=== PATIENT | male | born 1980 | race Caucasian/White ===

== ENCOUNTER 2025-03-29 21:26 | Emergency (ER) | payer OTHER, SELFPAY ==
--- OUTSIDE RECORDS SUMMARY | 2025-03-24 10:30 | XMS_ITS | Encounter Summary ---
Author Organization [facility] Address [address] [place] [address] Care Team Providers Care Service Administrator Name Role Phone Lashawn Robbins MD Primary Care Provider [phone] Reason for Visit * ReasonCommentsURISx of sore throat, sinus pressure, chest pressure, and cough that started Friday. Has been taking cough drops, and mucinex. Encounter Details DateTypeDepartmentCare Team (Latest Contact Info)Vwrlpyiquoo48/06/2025 10:30 AM ESTOffice Visit [facility] [address] [place] [address] Mari Johnson NP [address] [place], [place] [id number] Acute non-recurrent maxillary sinusitis (Primary Dx); Sinus pressure; Sore throat; Acute cough Social History Tobacco UseTypesPacks/DayYears UsedDateSmoking Tobacco: NeverSmokeless Tobacco: Never Tobacco Cessation:Counseling Given: Not Answered Alcohol UseStandard Drinks/WeekCommentsNot Currently1 (1 standard drink = 0.6 oz pure alcohol)caffeine: 1-2 cups per dayHumiliation, Afraid, Rape, and Kick questionnaireAnswerDate RecordedWithin the last year, have you been afraid of your partner or ex-partner?No10/30/2022Within the last year, have you been humiliated or emotionally abused in other ways by your partner or ex-partner?No 10/30/2022Within the last year, have you been kicked, hit, slapped, or otherwise physically hurt by your partner or ex-partner?No10/30/2022Within the last year, have you been raped or forced to have any kind of sexual activity by your part ner or ex-partner?No10/30/2022Social Connection and Isolation PanelAnswerDate RecordedIn a typical week, how many times do you talk on the phone with family, friends, or neighbors?Twice a week10/30/2022How often do you get together with friends or relatives?Once a week10/30/2022How often do you attend congregational or sabianist services?1 to 4 times per year10/30/2022o you belong to any clubs or organizations such as congregational groups, unions, [employer] or athletic groups, or school groups?No10/30/2022ttends Club or Organization MeetingsNot on file 10/30/2022re you , , , , never , or living with a partner?Wqoquot7010/30/2022UDIT-CAnswerDate RecordedQ1: How often do you have a drink containing alcohol?2-4 times a month10/30/2022Q2: How many drinks containing alcohol do you have on a typical day when you are drinking?1 or Q3: How often do you have six or more drinks on one occasion?Never 10/30/2022Overall Financial Resource Strain (CARDIA)AnswerDate RecordedHow hard is it for you to pay for the very basics like food, housing, medical care, and heating?Not hard at all10/30/2022HQ-2AnswerDate RecordedPatient Health Questionnaire-2 Nqpmd756Finh[facility]man [facility] [place] of Occupational Health - Occupational Stress QuestionnaireAnswerDate RecordedDo you feel stress - tense, restless, nervous, or anxious, or unable to sleep at night because yourmind is troubled all the time - these days?Not at all10/30/2022Exercise Vital SignAnswer Date RecordedOn average, how many days per week do you engage in moderate to strenuous exercise (like a brisk walk)?6 days10/30/2022On average, how many minutes do you engage in exercise at this level?120 min10/30/2022Hunger Vital SignAnswerDate RecordedWithin the past 12 months, you worried that your food would run out before you got the money to buymore.Never true10/30/2022Within the past 12 months, the food you bought just didn't last and you didn't have money to get more.Never true10/30/2022RAPARE - TransportationAnswerDate RecordedIn the past 12 months, has lack of transportation kept you from medical appointments or from getting medications?No10/30/2022In the past 12 months, has lack of transportation kept you from meetings, work, or from getting things needed for daily living?No10/30/2022Housing Stability Vital SignAnswerDate RecordedIn the last 12 months, was there a time when you were not able to pay the mortgage or rent on time?No10/30/2022Number of Places Lived in the Last Year Not on file10/30/2022In the last 12 months, was there a time when you did not have a steady place to sleep or slept in [facility] (including now)?No10/30/2022 Sex and Gender InformationValueDate RecordedSex Assigned at MnohzMjoj62/14/2023 7:08 AM EDTLegal PwsUfhm1107/31/2022 7:18 PM EDTGender RazppergZvfp53/14/2023 7:08 AM EDTSexual GwdgophwynqTtjceisn75/14/2023 7:08 AM EDTdocumented as of this encounter Last Filed Vital Signs Vital SignReadingTime TakenCommentsBlood Cocilopo355/7611 10:31 AM EST Efuwi6213 10:31 AM YOGNcemgghtfqs82.3 ??C (97.4 ??F)03/24/2025 10:31 AM ESTRespiratory Rate--Oxygen Axlghvlahz48%03/24/2025 10:31 AM ESTInhaled Oxygen Concentration--Exhxjy120 kg (227 lb 6.4 oz)03/24/2025 10:31 AM ESTHeight--Body Mass Index36.709 2:57 PM EDTdocumented in this encounter Progress Notes * Mari Johnson NP - 03/24/2025 10:30 AM EST Images from the original note were not included. Subjective ?Quick Links Last Note in Specialty Snapshot Edit RFV/CC Edit Screenings Current Meds Patient ID: Ruy Lemus is a 45 y.o. male who presents for URI (Sx of sore throat, sinus pressure, chest pressure, and cough that started Friday. Has been taking cough drops, and mucinex. ). HPI History of Present Illness The patient presents for evaluation of a sore throat. He has been experiencing symptoms since Friday, initially presenting with a severe sore throat. Subsequently, he developed an upset stomach, which he attributes to excessive consumption of cough drops. His symptoms then progressed to include sinus pressure and drainage. As of yesterday, he began toexperience a cough, accompanied by a sensation of bruising in his lungs, although without any associated wetness. He reports feeling tight and congested but has not experienced any fevers or body aches. Additionally, he notes tenderness in his sinuses and describes a painful sensation in his ears. He has been managing her symptoms with Mucinex D and increased water intake. ALLERGIES He is allergic to ASPIRIN. MEDICATIONS Mucinex D ?Quick Review Review Full History Edit History Meds - Current Medications[1] --- PMH - Allergic Injury Shingles Objective ?Quick Links Add Vitals Timeline (Adult) Labs Imaging Results Review Trend Vitals ?? Avoid pulling in long tables of results. Comment on relevant results to support your medical decision making. BP 122/76 Pulse 70 Temp 97.4 ??F Wt 227 lb 6.4 oz SpO2 98% BMI 36.70 kg/m?? Physical Exam Vitals reviewed. HENT: Head: Normocephalic and atraumatic. Right Ear: Tympanic membrane normal. Left Ear: Tympanic membrane normal. Nose: Nasal tenderness, mucosal edema, congestion and rhinorrhea present. Right Sinus: Maxillary sinus tenderness present. Left Sinus: Maxillary sinus tenderness present. Mouth/Throat: Mouth: Mucous membranes are moist. Pharynx: Posterior oropharyngeal erythema and postnasal drip present. Eyes: Pupils: Pupils are equal, round, and reactive to light. Cardiovascular: Rate and Rhythm: Normal rate and regular rhythm. Pulses: Normal pulses. Heart sounds: Normal heart sounds. Pulmonary: Effort: Pulmonary effort is normal. Breath sounds: Normal breath sounds. Musculoskeletal: Cervical back: Neck supple. Skin: General: Skin is warm and dry. Capillary Refill: Capillary refill takes less than 2 seconds. Findings: No rash. Neurological: General: No focal deficit present. Mental Status: He is alert and oriented to person, place, and time. Physical Exam Oral exam was performed. There is significant drainage in the throat. Lungs were auscultated. ?Quick Links Full Problem List Headache Assessment & Plan Sinus pressure Orders: STATUS COVID-19/FLU Sore throat Orders: STATUS COVID-19/FLU Acute cough Orders: STATUS COVID-19/FLU Acute non-recurrent maxillary sinusitis Assessment & Plan 1. Acute sinus infection. Early symptoms in the illness course suggest a viral etiology, but there is concern for acute sinusitis due to pain and tenderness to maxillary sinuses, headache, and post-nasal drainage. He is advised to rest at home for the remainder of the day. A work note will be provided for today. A 7-day course of Augmentin is prescribed to treat the infection he is advised to take it with food to minimizepotential gastrointestinal upset. Prednisone is also prescribed to reduce inflammation and improve sinus symptoms and chest tightness. Riwl-bjh-vfchrih Sudafed is recommended for congestion relief. Flonase is suggested to help dry up the sinuses. If he does not feel better by Friday, he should inform the office. [1] cyclobenzaprine (Flexeril) 10 MG tablet Glucosamine-Chondroitin (GLUCOSAMINE CHONDR COMPLEX PO) ibuprofen 800 MG tablet omega-3 1000 MG capsule capsule documented in this encounter Plan of Treatment DateTypeDepartmentCare Team (Latest Contact Info)Hmgralsttxs97/11/2026 3:30 PM EDTOffice Visit [facility] [address] [place] [address] Merle Atkinson NP [address] [place], [place] [id number] documented as of this encounter Procedures Procedure NamePriorityDate/TimeAssociated DiagnosisCommentsSTATUS COVID-19/FLU Zjxvijt9903/24/2025 10:40 AM EST Sinus pressure Sore throat Acute cough documented in this encounter Results * STATUS COVID-19/FLU (03/24/2025 10:40 AM EST)ComponentValueRef RangeTest MethodAnalysis TimePerformed AtPathologist SignatureFLU AnegativeFLU Bnegative SARS COV 2 RNAnegativeSpecimen (Source)Anatomical Location / Laterality Collection Method / VolumeCollection TimeReceived HwzdXbbaz06/06/2025 10:40 AM EST Narrative Authorizing ProviderResult TypeResult StatusWillapa Harbor Hospital Swined[facility] NPPOINT OF CARE TEST ENTER/EDIT ORDERABLESFinal Result documented in this encounter Visit Diagnoses Diagnosis Acute non-recurrent maxillary sinusitis- Primary Sinus pressure Other diseases of nasal cavity and sinuses Sore throat Acute pharyngitis Acute cough documented in this encounter Care Teams Team MemberRelationshipSpecialtyStart DateEnd Date Lashawn Robbins MD [address] [place] [address] PCP - GeneralFamily Medicine10/28/22documented as of this encounter
[2025-03-29 21:31] VITALS: BP 138/73; PULSE 77; TEMP 36.4; O2SAT 97; BMI 34.7
--- NOTE | 2025-03-29 21:58 | ED.EAR1 ---
HPI - Ear Problem General Chief complaint: Ear Stated complaint: CAN'T HEAR OUT OF LEFT EAR Time Seen by Provider: 03/29/25 21:32 Source: patient and family Mode of arrival: walk-in Limitations: no limitations History of Present Illness HPI Narrative: presents complaining of decreased hearing left ear. States he was pushing on wax at the entry of the ear canal and he feels it pushed the wax inside down into the canal. This happened about an hour ago. Now he can't hear out of the ear. No dizziness or headache Related Data Allergies Allergy/AdvReac Type Severity Reaction Status Date / Time aspirin Allergy Severe tachycardia Verified 03/29/25 21:31 Review of Systems ROS Status of ROS 10 or more systems reviewed and unremarkable except as noted in history and below PFSH PFSH Social History Little interest or pleasure in doing things: not at all Feeling down, depressed, or hopeless: not at all Exam Constitutional Vital Signs, click to edit/add: Last Vital Signs Temp 97.6 F 03/29/25 21:31 Pulse 77 03/29/25 21:31 Resp 15 03/29/25 21:41 BP 138/73 03/29/25 21:31 Pulse Ox 97 03/29/25 21:31 O2 Del Method Room Air 03/29/25 21:31 Common normals: no apparent distress, average body habitus, oriented x3, no limitations, healthy appearing, alert and well nourished [facility] Common normals: normocephalic and head/scalp atraumatic Other: impacted wax bilat ears. Kalli to hear out of the right but left ear sounds are muffled Eye Common normals: EOMs intact bilaterally and conjunctivae normal Respiratory Common normals: normal respiratory effort, no retractions, no use of accessory muscles and clear to auscultation bilaterally Cardio Common normals: regular rate, regular rhythm, S1 normal heart sound and S2 normal heart sound Extremity Common normals: normal to inspection and full ROM Neuro Common normals: oriented x3, CN's II-XII intact bilaterally, moves all extremities and no focal motor deficits Psych Appearance: grossly normal Course Vital Signs Vital signs: Vital Signs Temperature 97.6 F 03/29/25 21:31 Pulse Rate 77 03/29/25 21:31 Respiratory Rate 18 03/29/25 21:31 Blood Pressure 138/73 03/29/25 21:31 Pulse Oximetry 97 03/29/25 21:31 Oxygen Delivery Method Room Air 03/29/25 21:31 Temperature 97.6 F 03/29/25 21:31 Pulse Rate 77 03/29/25 21:31 Respiratory Rate 15 03/29/25 21:41 Blood Pressure 138/73 03/29/25 21:31 Pulse Oximetry 97 03/29/25 21:31 Oxygen Delivery Method Room Air 03/29/25 21:31 Medical Decision Making MDM Narrative Medical decision making narrative: presents with left ear wax impaction. Nursing did instill Debrox in the canal and the ear was irrigated several times and became sore. some wax removed but the majority remained. Patient discharged home with Debrox to use to soften the wax more. Advised to either see his doctor for recheck or he can return here Discharge Plan Discharge Chief Complaint: Ear Clinical Impression: Impacted cerumen, left ear Patient Disposition: Home, Self-Care Print Language: German Instructions: Carbamide Peroxide (Into the ear) Additional Instructions: instill drops 4 times a day. follow up with your doctor later this week for recheck Referrals: Physician,Non-Staff, MD [Primary Care Provider] - 1 week
[2025-03-29] MEDS: CARBAMIDE PEROXIDE 6.5% EAR DROPS 300 DROP/15 ML BOTTLE 10 DROP OT (22:15)
--- OUTSIDE RECORDS SUMMARY | 2025-03-29 22:25 | XMS_ITS | Encounter Summary ---
Author Organization [facility] Address [address] [place] [address] Care Team Providers Care Bilingual Account Manager Name Role Phone Lashawn Robbins MD Primary Care Provider [phone] Encounter Details DateTypeDepartmentCare Team (Latest Contact Info)Wqbutioxwii07/06/2025Travel Social History Tobacco UseTypesPacks/DayYears UsedDateSmoking Tobacco: NeverSmokeless Tobacco: NeverAlcohol UseStandard Drinks/WeekCommentsNot Currently1 (1 standard drink = [...] relatives?Once a week10/30/2022How often do you attend bahai or buddhist services?1 to 4 times per year10/30/2022o you belong to any clubs or organizations such as bahai groups, unions, fraternal or athletic groups, or school groups?No10/30/2022ttends Club or Organization MeetingsNot on file 10/30/2022re you , , , , never , or living with a partner?Ebhrlmz2610/30/2022UDIT-CAnswerDate RecordedQ1: How often do you have a [...] heating?Not hard at all10/30/2022HQ-2AnswerDate RecordedPatient Health Questionnaire-2 Ttldg347Finun[facility] of [facility] [place] of Occupational Health - Occupational Stress QuestionnaireAnswerDate [...] steady place to sleep or slept in andrewselter (including now)?No10/30/2022 Sex and Gender InformationValueDate RecordedSex Assigned at VqsjnQgkg33/14/2023 7:08 AM EDTLegal KymTiei8907/31/2022 7:18 PM EDTGender OlpzbmthFvwn93/14/2023 7:08 AM EDTSexual GnyocyzczbaGbsnazet84/14/2023 7:08 AM EDTdocumented as of this encounter Plan of Treatment DateTypeDepartmentCare Team (Latest Contact Info)Gxnpnqpixac78/11/2026 3:30 PM EDTOffice Visit [facility] [address] [place] [address] Merle Atkinson NP [address] [place] [address] documented as of this encounter Visit Diagnoses Not on filedocumented in this encounter Care Teams Team MemberRelationshipSpecialtyStart DateEnd Date Lashawn Robbins MD [address] [place], [place] [phone] PCP - GeneralFamily Medicine10/28/22documented as of this encounter
--- OUTSIDE RECORDS SUMMARY | 2025-03-29 22:25 | XMS_ITS | Clinical Summary ---
Author Organization [facility] Address [address] [place] [address] Care Team Providers Care Builder Operator Name Role Phone Lashawn Robbins MD Primary Care Provider [phone] Allergies Active AllergyReactionsCriticalityNoted DateCommentsAspirinGI intolerance, SwkyvdnHgvigw70/23/2018 Increased heart rate Medications MedicationSigDispense QuantityRefillsLast FilledStart DateEnd DateStatus ibuprofen 800 MG tablet Indications:Epicondylitis elbow, medial, right,Ocular migrainetake 1 tablet by mouth three times a day - IN THE MORNING, IN THE EVENING, AND AT BEDTIME 90 tablet 3Active omega-3 1000 MG capsule capsule Take 1 capsule by mouth in the morning.Active Glucosamine-Chondroitin (GLUCOSAMINE CHONDR COMPLEX PO) Take by mouthActive cyclobenzaprine (Flexeril) 10 MG tablet Indications:Ocular migraineTake 1 tablet (10 mg) by mouth at bedtime 30 tablet 5Active amoxicillin-clavulanate (Augmentin) 875-125 MG tablet Indications:Acute non-recurrent maxillary sinusitisTake 1 tablet (875 mg) by mouth in the morning and 1 tablet (875 mg) before bedtime. Do all this for 7 days. 14 tablet 515Active predniSONE (Deltasone) 20 MG tablet Indications:Acute non-recurrent maxillary sinusitisTake 1 tablet (20 mg) by mouth Daily for 5 days 5 tablet 515Active fluticasone (Flonase) 50 MCG/ACT nasal spray Indications:Sinus pressureAdminister 2 sprays into each nostril Daily Shake gently. Before first use, prime pump. After use, clean tip and replace cap. 16 g ctive predniSONE (Deltasone) 20 MG tablet Indications:Strain of lumbar paraspinous muscle, initial encounterTake 3 tabs (60mg) daily for 3 days, then take 2 tabs (40mg) daily for 3 days, then take 1 tab (20mg) daily for 3 days. 18 tablet Expired Active Problems ProblemNoted DateDiagnosed DateAnxiety about xqljzx1910/30/2022Ocular migraine 10/30/2022 Assessment & Plan (01/26/2025 4:25 PM EDT): Orders: cyclobenzaprine (Flexeril) 10 MG tablet; Take 1 tablet (10 mg) by mouth at bedtime Encounters DateTypeDepartmentCare JnpuWdhwbqfipho20/06/2025 10:30 AM ESTOffice Visit [address] [address] Mari Johnson NP Acute non-recurrent maxillary sinusitis (Primary Dx); Sinus pressure; Sore throat; Acute cough03/24/2025amboo flowsheet [address] [facility] [place] [address] Mari Johnson NP 03/24/20250697Xunmsn94/16/2025 9:30 AM EDTOffice Visit [address] [facility] [place] [address] Mari Johnson NP Strain of lumbar paraspinous muscle, initial encounter (Primary Dx)03/03/2025 Bamboo flow[address] [place] [address] Mari Johnson NP 03/03/20251830Qupcwp22/17/2025Telephone [address] [facility] [place] [address] Lashawn Robbins MD 02/01/2025bstract [facility] [address] [place] [address] Lashawn Robbins MD 01/27/2025Results Follow-Up [facility] [address] [facility] [place] [address] Merle Atkinson NP CBC and differential, Comprehensive metabolic panel01/26/2025 3:30 PM EDTOffice Visit [facility] [address] [facility] [place] [address] Merle Atkinson NP Routine general medical examination at a health care facility (Primary Dx); Ocular migraine ; Screening for heart zjwknek6901/26/2025amboo flowsheet [facility] [address] [facility] [place] [address] Merle Atkinson NP 01/26/2025Travelfrom Last 3 Months Family History Medical HistoryRelationNameCommentsHypertensionFatherEd Allan IIIMelanomaNeg HxRelationNameStatusCommentsDaughterAliveFatherEd Allan IIISonAlive Social History Tobacco UseTypesPacks/DayYears UsedDateSmoking Tobacco: NeverSmokeless [...] relatives?Once a week10/30/2022How often do you attend evangelical or jehovah's witness services?1 to 4 times per year10/30/2022o you belong to any clubs or organizations such as evangelical groups, unions, fraternal or athletic groups, or school groups?No10/30/2022ttends Club or Organization MeetingsNot on file 10/30/2022re you , , , , never , or living with a partner?Wgbtthj1210/30/2022UDIT-CAnswerDate RecordedQ1: How often do you have a [...] heating?Not hard at all10/30/2022HQ-2AnswerDate RecordedPatient Health Questionnaire-2 Wwzxz311Finhighland ridge hospital [place] of Occupational Health - Occupational Stress QuestionnaireAnswerDate [...] steady place to sleep or slept in ashelter (including now)?No10/30/2022 Sex and Gender InformationValueDate RecordedSex Assigned at PwujvUprh94/14/2023 7:08 AM EDTLegal FiaHwxb8707/31/2022 7:18 PM EDTGender XnpizwolSbrp89/14/2023 7:08 AM EDTSexual NzhjfflgtqbXkbypifb52/14/2023 7:08 AM EDT Last Filed Vital Signs Vital SignReadingTime TakenCommentsBlood Omxzfgpm656/7603/24/2025 10:31 AM EST Spwpm268903/24/2025 10:31 AM JFNVsmuyuuqgke40.3 ??C (97.4 ??F)03/24/2025 10:31 AM ESTRespiratory Zqwi090801/07/2023 10:30 AM EDTOxygen Nyapzqxurt03%03/24/2025 10:31 AM ESTInhaled Oxygen Concentration--Mxzfrr572 kg (227 lb 6.4 oz)03/24/2025 10:31 AM FMFBubqjx840.6 cm (5' 6 )01/23/2023 2:57 PM EDTBody Mass Index36.709 2:57 PM EDT Plan of Treatment DateTypeDepartmentCare Team (Latest Contact Info)Rmxyxdihqbs64/11/2026 3:30 PM EDTOffice Visit [facility] [address] [facility] [place] [address] Merle Atkinson NP [address] [place] [address] Health MaintenanceDue DateLast DoneCommentsCT Uledhluzyyjr1979FIT-DNA 1979FIT1979FOBT1979 4466Whbzyevdjxhbr1979COVID-19 Vaccine (2024- season)503/, 07/12/2020Influenza Vaccine (#1) 509/05/2020, 01/04/2019, 05/02/20181637Qwteqpgtkxe90/19/501437/, 02/04/2025, 02/04/2025olorectal Cancer Enhoeavbm53/19/2035Pneumococcal Vaccine: Pediatrics (0 to 5 Years) and At-Risk Patients (6 to 64 Years)Aged OutNo longer eligible based on patient's age to complete this topic Procedures Procedure NamePriorityDate/TimeAssociated DiagnosisCommentsSTATUS COVID-19/FLU Injwypd1403/24/2025 10:40 AM EST Sinus pressure Sore throat Acute cough COMPREHENSIVE METABOLIC WOIGKTqtvhro24/10/2025 4:07 PM EDT Screening for heart disease CBC (INCLUDES DIFF/PLT)Ugiyhxn4301/26/2025 4:07 PM EDT Screening for heart disease from Last 3 Months Results * STATUS COVID-19/FLU (03/24/2025 10:40 AM EST)ComponentValueRef RangeTest MethodAnalysis TimePerformed AtPathologist SignatureFLU AnegativeFLU Bnegative SARS COV 2 RNAnegativeSpecimen (Source)Anatomical Location / Laterality Collection Method / VolumeCollection TimeReceived FzlfKaglt01/06/2025 10:40 AM EST Narrative Authorizing ProviderResult TypeResult StatusCrawley Memorial Hospital NPPOINT OF CARE TEST ENTER/EDIT ORDERABLESFinal Result * CBC and differential (01/26/2025 4:07 PM EDT)ComponentValueRef RangeTest MethodAnalysis TimePerformed AtPathologist SignatureWHITE BLOOD CELL COUNT6.4 3.8 - 10.8 Thousand/uLQUESTRED BLOOD CELL COUNT4.614.20 - 5.80 Million/uLQUEST WDPWBMTIQU48.113.2 - 17.1 g/dUOENKUZUZCWGMLUZ75.038.5 - 50.0 %GIZEAJPX31.180.0 - 100.0 gHVEWWCFOQ42.627.0 - 33.0 cqLSVHXSOTX87.632.0 - 36.0 g/dLQUESTComment: For adults, a slight decrease in the calculated MCHC value (in the range of 30 to 32 g/dL) is most likely not clinically significant; however, it should be interpreted with caution in correlation with other red cell parameters and the patient's clinical condition. RDW12.611.0 - 15.0 %QUESTPLATELET YHKTH423732 - 400 Thousand/jQYZPEVGOV55.17.5 - 12.5 fLQUESTABSOLUTE NEUTROPHILS2,9761,500 - 7,800 cells/uLQUESTABSOLUTE LYMPHOCYTES2,989817 - 3,900 cells/uLQUESTABSOLUTE GTOVYUYFL509657 - 950 cells/uL QUESTABSOLUTE EYMPGXGACVZ3471 - 500 cells/uLQUESTABSOLUTE ALQQYDTTO790 - 200 cells/fPKBKRRWBSUSTFSRNG12.5%NKWBWNRWRCRKBSJZ36.9%QUESTMONOCYTES8.8%QUEST EOSINOPHILS1.3%QUESTBASOPHILS0.5%QUESTSpecimen (Source)Anatomical Location / LateralityCollection Method / VolumeCollection TimeReceived TimeBloodVenous blood specimen / Isejeol3401/26/2025 4:07 PM EDT01/26/2025 4:07 PM EDT Narrative Resulting Agency Comment Performing Organization Information ?Site ID: QPT ?Name: [employer] [facility] ?Address: [address] [place] [address], [address] [place] [phone] ?Director: Harman Booth MD Authorizing ProviderResult TypeResult StatusBreann Majors NPLAB BLOOD ORDERABLES Final ResultPerforming OrganizationAddressCity/State/ZIP CodePhone Number [facility]ST * Comprehensive metabolic panel (01/26/2025 4:07 PM EDT)ComponentValueRef Range Test MethodAnalysis TimePerformed AtPathologist JfqzbtpliJcmtxrb7367 - 99 mg/dLQUESTComment: ? Fasting reference interval MYX999 - 25 mg/dLQUESTCreatinine0.760.60 - 1.29 mg/qZHOQUDTEZC156> OR = 60 mL/min/1.92k4LSGYQRMP/CREATININE RATIOSEE NOTE:6 - (calc)QUESTComment: ?? Not Reported: BUN and Creatinine are within ?? reference range. ? Upcnfo360799 - 146 mmol/LQUESTPotassium, Bld4.13.5 - 5.3 mmol/PKMAPXGhcezsrz469 98 - 110 mmol/LQUESTCarbon Smxguze4315 - 32 mmol/LQUESTCalcium9.98.6 - 10.3 mg/dLQUESTPROTEIN, TOTAL7.56.1 - 8.1 g/dLQUESTALBUMIN5.03.6 - 5.1 g/dLQUEST GLOBULIN2.51.9 - 3.7 g/dL (calc)QUESTALBUMIN/GLOBULIN RATIO2.01.0 - 2.5 (calc) QUESTBILIRUBIN, TOTAL0.60.2 - 1.2 mg/dLQUESTALKALINE HKQSFCKTSZF5436 - 130 U/L XQQAEAXY8470 - 40 U/CLIOIFJKB690 - 46 U/LQUESTSpecimen (Source)Anatomical Location / LateralityCollection Method / VolumeCollection TimeReceived TimeBlood Venous blood specimen / Idekzgw1801/26/2025 4:07 PM EDT01/26/2025 4:07 PM EDT Narrative Resulting Agency Comment Performing Organization Information ?Site ID: QPT ?Name: [facility] ?Address: [address] [place] [address], [address] [place] [phone] ?Director: Harman Booth MD Authorizing ProviderResult TypeResult StatusBreann Majors NPLAB BLOOD ORDERABLES Final ResultPerforming OrganizationAddressCity/State/ZIP CodePhone Number [facility]ST from Last 3 Months Insurance Care Teams Team MemberRelationshipSpecialtyStart DateEnd Date Lashawn Robbins MD [address] [place] [address] PCP - GeneralFanhly Medicine10/28/22
--- OUTSIDE RECORDS SUMMARY | 2025-03-29 22:25 | XMS_ITS | Clinical Summary ---
Author Organization [facility] tem Address [facility] [place] [address] Care Team Providers Care Popcorn Vendor Name Role Phone Lashawn Robbins MD Primary Care Provider [phone] Allergies Active AllergyReactionsCriticalityNoted DateCommentsAspirinOther (See Comments) Ctcbtm5705/10/2018 Increased heart rate Medications MedicationSigDispense QuantityRefillsLast FilledStart DateEnd DateStatus glucos sul 2KCl/msm/chond/C/Mn (GLUCOSAMINE CHONDROITIN ORAL) Take by mouth in the morning.Active Lactobacillus acidophilus (PROBIOTIC ORAL) Take by mouth in the morning.Active omega 5-gas-ceq-fish oil (Fish OiL) 1,000 (120-180) mg capsule Take 1 capsule by mouth in the morning.Active TURMERIC ORAL Take by mouth in the morning.Active multivit-min/folic/vit K/lycop (MEN'S MULTIVITAMIN ORAL) Take by mouth in the morning.Active NON FORMULARY Med Name: TestBoost Max GF-9 [place] Cordycep mushroomActive Active Problems No known active problems Encounters DateTypeDepartmentCare SwumClbpszxhene67/19/2025 8:30 AM EDT - 02/04/2025 9:00 AM EDTSurgery [facility] [address] [place] [address] Bry Nolasco MD COLONOSCOPY DIAGNOSTIC / SCREENING [G0121 +1 more]02/04/2025 8:24 AM EDT Anesthesia Event [facility] [address] [place] [address] Best Agrawal, DO 02/04/2025 6:11 AM EDT - 02/04/2025 9:19 AM EDTHospital Encounter [facility] [address] [place] [address] Bry Nolasco MD Discharge Disposition: Home02/04/20253587Imgisg34/11/2025 3:50 PM EDTSupport Visit [facility] - Pre Admit [address] [place] [address] 01/05/2025 3:00 PM EDTOffice Visit [facility] [address] [facility] [place] [address] Summer Logan APRN-BUSINESS BANKER Encounter for screening colonoscopy (Primary Dx)01/05/2025Travelfrom Last 3 Months Family History Medical HistoryRelationNameCommentsHypertensionFatherEd Allan IIIStrokeFather Ed Allan IIIKidney diseaseMotherJanis WiedleFrequent StonesColon cancer Paternal AuntMaryBeth MowreyProstate cancerPaternal GrandfatherEd Allan II RelationNameStatusCommentsFatherEd Allan IIIAliveMotherJanis WiedleAlive Paternal AuntMaryBeth MowreyAlivePaternal GrandfatherEd Allan IIAlive Social History Tobacco UseTypesPacks/DayYears UsedDateSmoking Tobacco: NeverSmokeless Tobacco: Never Tobacco Cessation:Counseling Given: Not Answered Alcohol UseStandard Drinks/WeekCommentsYes1 (1 standard drink = 0.6 oz pure alcohol)ChildcareAnswerDate DqkqjpfkUyuysiiuwEgeqmca65/12/2019EmploymentAnswer Date TrmvxrpqIozqxjrtchQeweghs96/12/2019Sex and Gender InformationValueDate RecordedSex Assigned at BirthNot on fileLegal LafKpeq7012/22/2014 11:33 AM EDT Gender IdentityNot on fileSexual OrientationNot on file Last Filed Vital Signs Vital SignReadingTime TakenCommentsBlood Nmckprul92/4809 9:00 AM EDT Okuof661402/04/2025 9:00 AM TFYEieogbczfla64.4 ??C (97.6 ??F)02/04/2025 8:43 AM EDTRespiratory Mejg377202/04/2025 9:00 AM EDTOxygen Tsnxuhheam923%02/04/2025 9:00 AM EDTInhaled Oxygen Concentration--Avqgja35.5 kg (215 lb)02/04/2025 7:08 AM EDT Yhutlh095.6 cm (5' 6 )02/04/2025 7:08 AM EDTBody Mass Index34.7002/04/2025 7:08 AM EDT Plan of Treatment Health MaintenanceDue DateLast DoneCommentsDepression Fqhoszyze76/14/1991Adult BMI Follow Up Plan1997DTaP,Tdap and Td Vaccines (1 - Tdap)1998COVID- 19 Vaccine (3 - season)/, 07/12/2020Influenza Vaccine /05/2020, 01/04/2019, 05/02/2018Adult BMI Wfgfdjacz86/19/2026 02/04/2025Tobacco Zdcjerhmb53/8681Roemjypadgx50/19/203509/, 02/04/2025 Medical Devices Not on file Procedures Procedure NamePriorityDate/TimeAssociated DiagnosisCommentsPR COLONOSCOPY FLX DX W/COLLJ SPEC WHEN PFRMD02/04/2025 8:24 AM EDT Screen for colon cancer IN COLON CA SCRN NOT HI RSK IND02/04/2025 8:24 AM EDT Screen for colon cancer EBRAJLVIAGJ19/19/2025 8:16 AM EDT PROVATION WKXKIXGNQEJJlsvtzg94/19/2025 8:01 AM EDT from Last 3 Months Results * Colonoscopy (02/04/2025 8:16 AM EDT)Specimen (Source)Anatomical Location / LateralityCollection Method / VolumeCollection TimeReceived Time02/04/2025 8:16 AM EDT Narrative PM CARDIOVASCULAR - 02/04/2025 8:43 AM EDT [facility] Patient Name: Ruy Lemus ?? Procedure Date No Time: 02/04/2025 ?? CSN : [id number] Date of : 1980 Admit Type: Outpatient Age: 45 Room: [facility] OR Gender: Male Note Status: Finalized Attending MD: Bry Nolasco , , Procedure: ? Colonoscopy Indications: ? Screening for colorectal malignant neoplasm Providers: ? Bry Nolasco Referring MD: ?Bry Nolasco Medicines: ? Monitored Anesthesia Care Complications: ? No immediate complications. Procedure: ? After I obtained informed consent, the scope was ? passed under direct vision. Throughout the procedure, ? the patient's blood pressure, pulse, and oxygen ? saturations were monitored continuously. The OLYMNPUS ? -[id number] #[id number] ADULT COLONOSCOPE was introduced ? through the anus and advanced to the cecum, identified ? by appendiceal orifice and ileocecal valve. The ? colonoscopy was performed without difficulty. The ? patient tolerated the procedure well. The quality of ? the bowel preparation was good. The ileocecal valve, ? appendiceal orifice, and rectum were photographed. Findings: ? The entire examined colon appeared normal. Estimated Blood Loss: ??Estimated blood loss: none. Impression: ?- The entire examined colon is normal. ? - No specimens collected. Recommendation: ?- Repeat colonoscopy in 10 years for screening ? purposes. Procedure Code(s): ? --- Professional --- ? G0121, Colorectal cancer screening; colonoscopy on ? individual not meeting criteria for high risk Diagnosis Code(s): ? --- Professional --- ? Z12.11, Encounter for screening for malignant neoplasm of colon CPT copyright 2022 [employer]. All rights reserved. The codes documented in this report are preliminary and upon crimping machine operator for metal review may be revised to meet current compliance requirements. MD Bry Gan, 02/04/2025 8:43:01 AM This report has been signed electronically.Bry Nolasco Number of Addenda: 0 Note Initiated On: 02/04/2025 8:16 AM Procedure Note Bry Nolasco MD - 02/04/2025 [facility] Patient Name: Ruy Lemus Procedure Date No Time: 02/04/2025 CSN : [id number] Date of : 1980 Admit Type: Outpatient Age: 45 Room: [place] [address] Gender: Male Note Status: Finalized Attending MD: Bry Nolasco , , Procedure: Colonoscopy Indications: Screening for colorectal malignant neoplasm Providers: Bry Nolasco Referring MD: Bry Nolasco Medicines: Monitored Anesthesia Care Complications: No immediate complications. Procedure: After I obtained informed consent, the scope was passed under direct vision. Throughout theprocedure, the patient's blood pressure, pulse, and oxygen saturations were monitored continuously. [employer] [id number] #[id number] ADULT COLONOSCOPE was introduced through the anus and advanced to the cecum,identified by appendiceal orifice and ileocecal valve. The colonoscopy was performed without difficulty. The patient tolerated the procedure well. The qualityof the bowel preparation was good. The ileocecalvalve, appendiceal orifice, and rectum werephotographed. Findings: The entire examined colon appeared normal. Estimated Blood Loss: Estimated blood loss: none. Impression: - The entire examined colon is normal. - No specimens collected. Recommendation: - Repeat colonoscopy in 10 years for screening purposes. Procedure Code(s): --- Professional --- G0121, Colorectal cancer screening; colonoscopy on individual not meeting criteria for high risk Diagnosis Code(s): --- Professional --- Z12.11, Encounter for screening for malignant neoplasm of colon CPT copyright 2022 [employer]. All rights reserved. The codes documented in this report are preliminary and upon crimping machine operator for metal reviewmay be revised to meet current compliance requirements. MD Bry Gan, 02/04/2025 8:43:01 AM This report has been signed electronically.Bry Nolasco Number of Addenda: 0 Note Initiated On: 02/04/2025 8:16 AM Authorizing ProviderResult TypeResult StatusBry KERR PROCEDURE ORDERABLESFinal ResultPerforming OrganizationAddressCity/State/ZIP CodePhone Number PM CARDIOVASCULAR * Colonoscopy Report (02/04/2025 8:01 AM EDT)Specimen (Source)Anatomical Location / LateralityCollection Method / VolumeCollection TimeReceived Time Narrative SYSTEMGENERATED, DOCUMENTATION - 02/04/2025 8:01 AM EDT This order has been auto-finalized for image and report archival in PACs. *For full report details, please reach out to your physician. ??This image is visible to you in MyChart.* Authorizing ProviderResult TypeResult StatusMennatallah M Gaurav MDIMG OR IMG ORDERABLESFinal Result from Last 3 Months Insurance Care Teams Team MemberRelationshipSpecialtyStart DateEnd Lashawn Robbins MD [address] [place] [address] PCP - GeneralFamily Medicine12/31/24
--- OUTSIDE RECORDS SUMMARY | 2025-03-29 22:25 | XMS_ITS | Encounter Summary ---
Author Organization [facility] Address [address] [facility] [place] [address] Care Team Providers Care Word Processing Operator Name Role Phone Lashawn Robbins MD Primary Care Provider [phone] Encounter Details DateTypeDepartmentCare Team (Latest Contact Info)Byghhjlmrqg96/06/2025amboo flowsheet [facility] [address] [place] [address] Mari Johnson NP [address] [place] [address] Social History Tobacco UseTypesPacks/DayYears UsedDateSmoking Tobacco: NeverSmokeless [...] relatives?Once a week10/30/2022How often do you attend yazidi or gnosticist services?1 to 4 times per year10/30/2022o you belong to any clubs or organizations such as yazidi groups, unions, fraternal or athletic groups, or school groups?No10/30/2022ttends Club or Organization MeetingsNot on file 10/30/2022re you , , , , never , or living with a partner?Ibjbehi4610/30/2022UDIT-CAnswerDate RecordedQ1: How often do you have a [...] heating?Not hard at all10/30/2022HQ-2AnswerDate RecordedPatient Health Questionnaire-2 Xtvwv742Finlake[facility] [place] of Occupational Health - Occupational Stress QuestionnaireAnswerDate [...] Sex and Gender InformationValueDate RecordedSex Assigned at RglvrUdhr33/14/2023 7:08 AM EDTLegal MgxBdzc2107/31/2022 7:18 PM EDTGender NqijidbzCuky67/14/2023 7:08 AM EDTSexual YdxfgdzkexdYpgmbkiu25/14/2023 7:08 AM EDTdocumented as of this encounter Plan of Treatment DateTypeDepartmentCare Team (Latest Contact Info)Hljogkqsdzt19/11/2026 3:30 PM EDTOffice Visit [facility] [address] [place] [address] Merle Atkinson NP [address] [place], [place] [address] documented as of this encounter Visit Diagnoses Not on filedocumented in this encounter Care Teams Team MemberRelationshipSpecialtyStart DateEnd Date Lashawn Robbins MD [address] [place], [place] [address] PCP - GeneralFamily Medicine10/28/22documented as of this encounter
[2025-03-29 23:05] VITALS: BP 130/80
== END 2025-03-29 23:08 | disposition home or self-care (01) ==
PROVIDERS: Emergency Provider Internal Medicine; Family Provider Family Medicine
DX: H61.22 Impacted cerumen, left ear (principal)
CPT/HCPCS: 99282